=== PATIENT | female | born 1970 | race Two or more races ===

== ENCOUNTER 2024-04-11 17:00 | Outpatient (RCR) | payer MEDICAID, SELFPAY ==
--- NOTE | 2024-04-02 15:08 | PTNOTE_ITS ---
PT OP Initial Eval Patient Information Outpatient Physical Therapy Treatment Date: 04/02/24 Visit Reasons: low back pain Medical Diagnosis: M51.369 Treatment Dx #1: back pain Start of Care: 04/02/24 Date of Onset: 6 months ago Smoking Status Smoking Status: Never smoker Initial Assessment Subjective: Pt is 53 yr old female who reports onset of back pain x6 months. She is wearing a brace and pain increases with HH chores, lifting heavy things, twisting. 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 The pain comes and goes and is described as burning. PMH: mechanical heart valve 05/24/2019, the fingertips get numb Imaging: Xray report in EMR narrowed L4-5 adn L5-S1 intervertebral disc spaces Pt goal: less back pain Objective: Trunk AROM; FB: 50% with pain Extension: 30% with LBP Rotation: pain in T/S Sidebendin% of full with pain TTP: moderate of lumbar and cervical paraspinals diffusely SLR: negative B Assessment: Pt presents with pain along the spine with flexion and TTP of paraspinals consistent with diffuse OA and/or disc space narrowing. Pt would benefit from skilled therapy in order to meet goals and has fair rehab potential. [employer] and [employer] Goals 1. ind with HEP 2. Improved trunk FB to 60% without pain 3. Decreased TTP of paraspinals from mod to min 4. Tolerate HH chores x30 minutes without back pain Treatment Plan ? 1. Manual therapy ? 2. Therex ? 3. Modalities as indicated, moist heat, ice, estim Frequency and Duration: 1-2x a week for 8 visits. Pt will need provider signature on this evaluation to continue past 4 visits or a new referral since it says 4 Rx visits Certification Dates: 04/02/24 to 06/29/24 Procedure Charges OP PT Eval Mod Complex 30 minutes: Yes
--- NOTE | 2024-04-11 17:53 | PT.ODAYNRPT ---
PT Outpatient Daily Note OP Daily Note Outpatient Physical Therapy Treatment Date: 04/11/24 Visit Reasons: low back pain Subjective: Same as eval Objective: See F/S for therex MHP x7' L/S Assessment: Good demo of therex with low tissue irritability Plan: Cont per POC Length of Time (minutes) of Treatment: 30 Minutes Procedure Charges Therapeutic Exercise 30 minutes: Yes
== END 2024-04-19 23:59 | disposition home or self-care (01) ==
LOC: CPTX 17:00
PROVIDERS: PCP Physician Assistant Medical; Referring Provider Physician Assistant Medical; Visit Provider Physician Assistant Medical
DX: M51.360 Other intervertebral disc degeneration, lumbar region with discogenic back pain only (principal)
CPT/HCPCS: 97110; 97162

== ENCOUNTER 2024-05-16 17:00 | Outpatient (RCR) | payer MEDICAID, SELFPAY ==
--- NOTE | 2024-04-24 17:48 | PT.ODAYNRPT ---
PT Outpatient Daily Note OP Daily Note Outpatient Physical Therapy Treatment Date: 04/24/24 Visit Reasons: low back pain Subjective: Less LBP since last visit Objective: See F/S for therex MHP x7' L/S MT: STM L/S with flexbar x5' Assessment: Good demo of therex with low tissue irritability Plan: Cont per POC Length of Time (minutes) of Treatment: 30 Minutes Procedure Charges Therapeutic Exercise 30 minutes: Yes
--- NOTE | 2024-05-08 16:56 | PT.ODAYNRPT ---
PT Outpatient Daily Note OP Daily Note Outpatient Physical Therapy Treatment Date: 05/08/24 Visit Reasons: low back pain Subjective: Less LBP since last visit Objective: See F/S for therex MHP x7' L/S MT: STM L/S with flexbar x5' Assessment: Good demo of therex with low tissue irritability Plan: Cont per POC Length of Time (minutes) of Treatment: 30 Minutes Procedure Charges Therapeutic Exercise 30 minutes: Yes
--- NOTE | 2024-05-16 18:13 | PT.ODS1RPT ---
PT OP Progress/Discharge Note Date of Service: 05/16/24 Progress Note/DC Note Progress Note/Discharge Note: DC Note Patient Information Visit Reasons: low back pain Service Continue Service or Discharge: Discharge Discharge Date: 05/16/24 Status Subjective: Much less LBP since starting therapy, she's ready to continue at home. Objective: See F/S for therex MHP x7' L/S MT: STM L/S with flexbar x5' Trunk AROM: FB: 8 from floor without pain Assessment: Pt has attended the eval and 4 Rx visits with very good progress to meet therapy goals. She is doing HEP with pain relief and has improved trunk FB without pain to meet that goal. She can tolerate HH chores x30 mins and has decreased TTP of lumbar paraspinals to min to meet those goals. Plan: D/C with HEP Procedure Charges Therapeutic Exercise 30 minutes: Yes
== END 2024-05-20 23:59 | disposition home or self-care (01) ==
LOC: CPTX 17:00
PROVIDERS: PCP Physician Assistant Medical; Referring Provider Physician Assistant Medical; Visit Provider Physician Assistant Medical
DX: M51.360 Other intervertebral disc degeneration, lumbar region with discogenic back pain only (principal)
CPT/HCPCS: 97110